=== PATIENT | female | born 1975 | race Caucasian/White ===

== ENCOUNTER 2018-07-14 10:34 | Emergency (ER) | payer MEDICAID ==
[2018-07-14] MEDS: DIPHENHYDRAMINE 50 MG INJ IV (11:59)
[2018-07-14] MEDS: SOD CHLORIDE 0.9% 500 ML IV (11:59)
[2018-07-14] MEDS: METOCLOPRAMIDE 10 MG INJ IV (11:59)
[2018-07-14 12:11] LABS: ADD UMIC NO; UR ASCORBIC ACID NEGATIVE (NEGATIVE); UR BACTERIA FEW /HPF (NONE SEEN); UR BILIRUBIN (Dip) NEGATIVE (NEGATIVE); UR BLOOD (Dip) NEGATIVE (NEGATIVE); UR CLARITY SLIGHTLY CLOUDY (CLEAR); UR COLOR STRAW (YELLOW); UR GLUCOSE (Dip) NEGATIVE (NEGATIVE); UR KETONES (Dip) NEGATIVE (NEGATIVE); UR LEUKOCYTE ESTERASE (Dip) NEGATIVE Leu/ul (NEGATIVE); UR MUCUS FEW /HPF (NONE SEEN); UR NITRITE (Dip) NEGATIVE (NEGATIVE); UR RBC 7 /HPF (0-5); UR SPECIFIC GRAVITY (Dip) 1.002 (1.003-1.030); UR SQUAMOUS EPITHELIAL CELL FEW /HPF (FEW); UR TOTAL PROTEIN (Dip) NEGATIVE (NEGATIVE); UR UROBILINOGEN (Dip) NEGATIVE (NEGATIVE); UR WBC 1 /HPF (0-5)
[2018-07-14] MEDS: ACETAMINOPHEN 500 MG TAB PO (12:32)
== END 2018-07-14 12:59 | disposition home or self-care (01) ==
LOC: FTE 10:34
DX: O23.41 Unspecified infection of urinary tract in pregnancy, first trimester (principal); O99.511 Diseases of the respiratory system complicating pregnancy, first trimester; J45.909 Unspecified asthma, uncomplicated; Z3A.10 10 weeks gestation of pregnancy
CPT/HCPCS: 81001; 81003; 96374; 99284-25

== ENCOUNTER 2019-01-29 01:05 | Inpatient (IN) | payer MEDICAID ==
[2019-01-29] MEDS ORDERED: BUTORPHANOL 1 MG INJ IV (02:00)
[2019-01-29] MEDS ORDERED: IBUPROFEN 600 MG TAB PO (02:00)
[2019-01-29] MEDS ORDERED: OXYTOCIN 30 UNITS/LR 500 ML IV ×2 (02:00→12:30)
[2019-01-29] MEDS ORDERED: MISOPROSTOL 200 MCG TAB PR ×2 (02:00→12:30)
[2019-01-29] MEDS ORDERED: BUTORPHANOL 2 MG INJ IV (02:00)
[2019-01-29] MEDS ORDERED: CARBOPROST 250 MCG INJ IM ×2 (02:00→12:30)
[2019-01-29] MEDS ORDERED: LIDOCAINE 1% (MPF) 30 ML INJ INJ (02:00)
[2019-01-29] MEDS: LACTATED RINGER'S 1,000 ML IV ×3 (02:20→06:22)
[2019-01-29 02:24] LABS: ADD MAN DIFF? NO
[2019-01-29 02:26] LABS: BASOPHIL # 0.1 10^3/ul (0.0-0.1); BASOPHILS % 0.6 % (0.0-2.0); EOSINOPHILS # 0.6 10^3/ul (0.0-0.5); EOSINOPHILS % 6.4 % (0.0-7.0); HEMATOCRIT 37.8 % (37.0-47.0); HEMOGLOBIN 12.3 g/dl (12.0-16.0); LYMPHOCYTES # 1.6 10^3/ul (0.8-2.9); LYMPHOCYTES % 18.5 % (15.0-51.0); MEAN CORPUSCULAR HEMOGLOBIN 27.7 pg (29.0-33.0); MEAN CORPUSCULAR HGB CONC 32.5 g/dl (32.0-37.0); MEAN CORPUSCULAR VOLUME 85.1 fl (82.0-101.0); MEAN PLATELET VOLUME 10.2 fl (7.4-10.4); MONOCYTE # 0.6 10^3/ul (0.3-0.9); MONOCYTES % 6.3 % (0.0-11.0); NEUTROPHIL # 5.9 10^3/ul (1.6-7.5); NEUTROPHILS % 67.2 % (39.0-77.0); PLATELET COUNT 256 10^3/UL (140-415); RED BLOOD COUNT 4.44 10^6/ul (4.20-5.40); RED CELL DISTRIBUTION WIDTH 15.1 % (11.5-14.5)
[2019-01-29 02:26] LABS: WHITE BLOOD COUNT 8.7 10^3/ul (4.8-10.8)
[2019-01-29] MEDS: AMPICILLIN 2 GM/NS (PMX) 100 ML IV (02:35)
[2019-01-29] MEDS: ONDANSETRON 4 MG INJ IV (02:35)
[2019-01-29 02:50] LABS: INR 0.86; PROTIME 11.8 Sec (11.9-14.9); PT RATIO 0.9
[2019-01-29 02:51] LABS: PARTIAL THROMBOPLASTIN TIME 25.6 Sec (23.0-35.0)
[2019-01-29] MEDS ORDERED: FENTAnyl 50 MCG/ML VIAL ×2 (02:51)
[2019-01-29] MEDS ORDERED: ROPIVACAINE 0.2% 100 ML (03:12)
[2019-01-29] MEDS ORDERED: NALOXONE (0.4 MG/ML) INJ IV (03:30)
[2019-01-29] MEDS ORDERED: ONDANSETRON 4 MG INJ IV ×2 (03:30→12:30)
[2019-01-29] MEDS ORDERED: DIPHENHYDRAMINE 50 MG INJ IV ×2 (03:30→12:30)
[2019-01-29] MEDS ORDERED: ROPIVACAINE 0.2% 100ML BAG EPI (03:30)
[2019-01-29] MEDS: FENTAnyl 2MCG/ML-ROPIV 0.2% 100 ML BAG EPI (03:54)
[2019-01-29] MEDS: AMPICILLIN 1 GM/NS (PMX) 50 ML IV (06:22)
[2019-01-29 07:16] LABS: HEPATITIS B SURFACE ANTIGEN NEGATIVE (NEGATIVE)
[2019-01-29] MEDS: METHYLERGONOVINE 0.2 MG INJ IM (10:35)
[2019-01-29] MEDS: OXYTOCIN 30 UNITS/LR 500 ML IV ×2 (10:59→11:28)
[2019-01-29] MEDS: DEXTROSE 5%-LR 1,000 ML IV ×2 (12:14→20:14)
[2019-01-29] MEDS ORDERED: LANOLIN HPA 1 PKT TOP (12:30)
[2019-01-29] MEDS ORDERED: METHYLERGONOVINE 0.2 MG INJ IM (12:30)
[2019-01-29] MEDS ORDERED: ACETAMINOPHEN 325 MG TAB PO (12:30)
[2019-01-29] MEDS ORDERED: ZOLPIDEM 5 MG TAB PO (12:30)
[2019-01-29] MEDS: BENZOCAINE 20% 56 ML SPRAY TOP (12:56)
[2019-01-29] MEDS: WITCH HAZEL/GLYCERIN PAD PR (12:56)
[2019-01-29] MEDS: IBUPROFEN 600 MG TAB PO ×3 (12:57→23:56)
[2019-01-29] MEDS: LACTATED RINGER'S 1,000 ML IV* ×2 (14:55→20:14)
[2019-01-29 16:05] LABS: RAPID PLASMA REAGIN NONREACTIVE (NR)
[2019-01-29] MEDS: SENNA/DOCUSATE NA (8.6MG/50MG) TAB PO (18:59)
[2019-01-30] MEDS: OXYCODONE/ASPIRIN (4.88/325) TAB PO (03:01)
[2019-01-30] MEDS: LACTATED RINGER'S 1,000 ML IV* (04:14)
[2019-01-30] MEDS: DEXTROSE 5%-LR 1,000 ML IV (04:14)
[2019-01-30] MEDS: IBUPROFEN 600 MG TAB PO ×4 (06:01→23:24)
[2019-01-30 08:05] LABS: ADD MAN DIFF? NO
[2019-01-30 08:13] LABS: WHITE BLOOD COUNT 13.1 10^3/ul (4.8-10.8)
[2019-01-30 08:13] LABS: BASOPHIL # 0.1 10^3/ul (0.0-0.1); BASOPHILS % 0.5 % (0.0-2.0); EOSINOPHILS # 0.7 10^3/ul (0.0-0.5); EOSINOPHILS % 5.3 % (0.0-7.0); HEMATOCRIT 29.9 % (37.0-47.0); HEMOGLOBIN 9.7 g/dl (12.0-16.0); LYMPHOCYTES # 1.9 10^3/ul (0.8-2.9); LYMPHOCYTES % 14.7 % (15.0-51.0); MEAN CORPUSCULAR HGB CONC 32.4 g/dl (32.0-37.0); MEAN CORPUSCULAR VOLUME 86.4 fl (82.0-101.0); MEAN PLATELET VOLUME 10.4 fl (7.4-10.4); MONOCYTE # 0.7 10^3/ul (0.3-0.9); MONOCYTES % 5.5 % (0.0-11.0); NEUTROPHIL # 9.6 10^3/ul (1.6-7.5); NEUTROPHILS % 72.9 % (39.0-77.0); PLATELET COUNT 210 10^3/UL (140-415); RED BLOOD COUNT 3.46 10^6/ul (4.20-5.40); RED CELL DISTRIBUTION WIDTH 15.4 % (11.5-14.5)
[2019-01-30] MEDS: SENNA/DOCUSATE NA (8.6MG/50MG) TAB PO (11:03)
[2019-01-31] MEDS: IBUPROFEN 600 MG TAB PO (05:32)
[2019-01-31] MEDS: DIPHTH/TET/ACEL PERTUSS (ADULT) 0.5 ML VIAL IM* (07:31)
[2019-01-31] MEDS: MEASLES,MUMPS,RUBELLA VACCINE INJ SC* (09:24)
== END 2019-01-31 11:57 | disposition home or self-care (01) | DRG 807 ==
LOC: OBT 01:05 → L-D 01:05 → OBT 01:45 → L-D 01:45 → PP1 12:08
PROVIDERS: Obstetrics & Gynecology
PROC: 10E0XZZ Delivery of Products of Conception, External Approach (ICD-10-PCS; principal; 2019-01-29)
PROC: 0KQM0ZZ Repair Perineum Muscle, Open Approach (ICD-10-PCS; 2019-01-29)
DX: O77.0 Labor and delivery complicated by meconium in amniotic fluid (principal); Z37.0 Single live birth; O70.1 Second degree perineal laceration during delivery; Z3A.38 38 weeks gestation of pregnancy
CPT/HCPCS: 62319; 85025; 85610; 85730; 86592; 86850; 86900; 86901; 87340